=== PATIENT | female | born 1945 | race Caucasian/White ===

== ENCOUNTER 2022-11-24 11:00 | Emergency (ER) | payer MEDICARE, OTHER ==
[2022-11-24 11:58] LABS: BASOPHILS PERCENT AUTO 0.6 % (0.0-1.5); EOSINOPHILS ABSOLUTE AUTO 0.2 K/uL (0.0-0.7); EOSINOPHILS PERCENT AUTO 2.8 % (0.0-7.0); HEMATOCRIT 39.2 % (36.0-46.0); LYMPHOCYTES PERCENT AUTO 30.9 % (16.0-40.0); MEAN CORPUSCULAR HEMOGLOBIN 32.2 pg (27.0-32.0); MEAN CORPUSCULAR HGB CONC 33.2 g/dL (31.0-37.0); MONOCYTES ABSOLUTE AUTO 0.7 K/uL (0.0-0.8); MONOCYTES PERCENT AUTO 11.3 % (0.0-15.0); NEUTROPHILS ABSOLUTE AUTO 3.5 K/uL (1.4-5.7); NEUTROPHILS PERCENT AUTO 54.4 % (48.0-80.0); NRBC ABSOLUTE 0 K/uL; PLATELET COUNT,PLT 323 K/uL (150-400); RED BLOOD CELL COUNT 4.04 M/uL (4.30-5.90); WHITE BLOOD CELL COUNT,WBC 6.38 K/uL (4.0-11.0)
[2022-11-24 12:11] LABS: INR 1.01 (0.86-1.11)
[2022-11-24 12:29] LABS: A/G RATIO 0.8 (0.9-1.6); ALBUMIN 3.4 g/dL (3.4-5.0); BILIRUBIN TOTAL 0.4 mg/dL (0.2-1.0); CALCIUM 9.3 mg/dL (8.5-10.1); CARBON DIOXIDE,CO2 25.9 mmol/L (21.0-32.0); CREATININE 0.8 mg/dL (0.6-1.0); EST CRCL DRUG DOSING (CG) 51.31 mL/min; POTASSIUM,K 4.3 mmol/L (3.5-5.1); PROTEIN TOTAL,TP 7.5 g/dL (6.4-8.2)
[2022-11-24 12:34] LABS: LACTIC ACID 0.8 mmol/L (0.4-2.0)
[2022-11-24] MEDS ORDERED: Sodium Chloride 0.9% 500 ML IV SCH (13:45)
[2022-11-24] MEDS ORDERED: Iopamidol 755 Mg/ML 100 ML Bottle IVPUSH ONE (14:16)
[2022-11-24 15:59] VITALS: BP 140/74; PULSE 80
== END 2022-11-24 15:58 | disposition home or self-care (01) ==
LOC: MW.ED 11:00
DX: L03.116 Cellulitis of left lower limb (principal); M79.81 Nontraumatic hematoma of soft tissue; R91.8 Other nonspecific abnormal finding of lung field; I10 Essential (primary) hypertension; E78.00 Pure hypercholesterolemia, unspecified; Z79.899 Other long term (current) drug therapy
CPT/HCPCS: 36415; 71045; 71260; 80053; 83605; 84484; 85025; 85610; 93005; 93971; 99284; J7040; Q9967; 93010

== ENCOUNTER 2023-02-19 07:09 | Day surgery (SDC) | payer MEDICARE, OTHER ==
[~2023-02-19 07:09] MED LIST: Lactated Ringers 1,000 ML IV SCH; Sodium Chloride 0.9% 10 ML Syringe FLUSH PRN; Sodium Chloride 0.9% 2.5 ML Syringe FLUSH PRN; Sodium Chloride 0.9% 20 ML SDV IV PRN
[2023-02-19] MEDS ORDERED: Propofol 200 MG/20 ML SDV ONE (09:04)
[2023-02-19] MEDS ORDERED: Lidocaine 2% 5 ML SDV ONE (09:04)
[2023-02-19 10:17] VITALS: BP 130/78; PULSE 124
== END 2023-02-19 10:40 | disposition home or self-care (01) ==
LOC: MW.SDS 07:09
PROVIDERS: ATTEND Surgery
DX: Z12.11 Encounter for screening for malignant neoplasm of colon (principal); D12.2 Benign neoplasm of ascending colon; K62.89 Other specified diseases of anus and rectum; I10 Essential (primary) hypertension; E78.00 Pure hypercholesterolemia, unspecified; Z86.010 Personal history of colon polyps; Z79.899 Other long term (current) drug therapy; Z98.890 Other specified postprocedural states; Z87.891 Personal history of nicotine dependence
CPT/HCPCS: 45380; J2704; J7120; 00811; 99100; J3490

== ENCOUNTER 2023-02-20 06:08 | Day surgery (SDC) | payer MEDICARE, OTHER ==
[2023-02-20] MEDS ORDERED: Bupivacaine 0.5% 30 ML SDV ONE (07:24)
[2023-02-20] MEDS ORDERED: Heparin Sodium 100 Units/ML 3 ML Syringe ONE (07:24)
[2023-02-20] MEDS ORDERED: Lidocaine 1% 20 ML MDV ONE (07:24)
[2023-02-20] MEDS ORDERED: Propofol 200 MG/20 ML SDV ONE (07:36)
[2023-02-20] MEDS ORDERED: propofoL 50 ML ONE (07:36)
[2023-02-20] MEDS ORDERED: fentaNYL 100 MCG/2 ML SDV ONE (07:36)
[2023-02-20] MEDS ORDERED: HYDROmorphone 1 MG/ML Syringe IVPUSH PRN (07:46)
[2023-02-20] MEDS ORDERED: Morphine 2 MG/ML SYRINGE IVPUSH PRN (07:46)
[2023-02-20] MEDS ORDERED: droPERidol 5 MG/2 ML SDV IVPUSH PRN (07:46)
[2023-02-20] MEDS ORDERED: Naloxone 0.4 MG/ML SDV IVPUSH PRN (07:46)
[2023-02-20] MEDS ORDERED: Albuterol 0.083% 2.5 MG/3 ML Neb Soln NEB PRN (07:46)
[2023-02-20] MEDS ORDERED: Ondansetron 4 MG/2 ML SDV IVPUSH PRN (07:46)
[2023-02-20] MEDS ORDERED: Metoclopramide 10 MG/2 ML SDV IVPUSH PRN (07:46)
[2023-02-20] MEDS ORDERED: fentaNYL 50 MCG/ML SDV IVPUSH PRN (07:46)
[2023-02-20] MEDS ORDERED: Phenylephrine HCl 0.5 MG/5 ML AMP ONE (08:29)
[2023-02-20 10:08] VITALS: BP 135/67; PULSE 74
[2023-02-20] MEDS ORDERED: ceFAZolin 2 GM in Sodium Chloride 0.9% 50 ML IV ONE (15:23)
== END 2023-02-20 10:35 | disposition home or self-care (01) ==
LOC: MW.SDS 06:08
PROVIDERS: ATTEND Surgery
DX: C34.91 Malignant neoplasm of unspecified part of right bronchus or lung (principal); I35.1 Nonrheumatic aortic (valve) insufficiency; K63.5 Polyp of colon; E78.00 Pure hypercholesterolemia, unspecified; I10 Essential (primary) hypertension; Z87.891 Personal history of nicotine dependence; Z79.899 Other long term (current) drug therapy
CPT/HCPCS: 36561; 71045; 76000; C1788; J1642; J2704; J3010; J3490; J7120; 00532; 99100; J2371

== ENCOUNTER 2023-09-24 15:04 | Emergency (ER) | payer MEDICARE, OTHER ==
[2023-09-24 15:45] LABS: BASOPHILS ABSOLUTE AUTO 0.03 K/uL (0.00-0.20); BASOPHILS PERCENT AUTO 0.7 % (0.0-1.0); EOSINOPHILS ABSOLUTE AUTO 0.05 K/uL (0.00-0.45); EOSINOPHILS PERCENT AUTO 1.1 % (0.0-6.0); HEMATOCRIT 31.9 % (37.0-47.0); HEMOGLOBIN 10.8 g/dL (12.0-16.0); IMMATURE GRAN ABSOLUTE AUTO 0.01 K/uL (0.00-0.05); IMMATURE GRAN PERCENT AUTO 0.2 % (0.0-0.4); LYMPHOCYTES ABSOLUTE AUTO 1.05 K/uL (1.00-4.80); MEAN CORPUSCULAR HEMOGLOBIN 33.4 pg (28.0-32.0); MEAN CORPUSCULAR HGB CONC 33.9 g/dL (32.0-36.0); MEAN CORPUSCULAR VOLUME 98.8 fL (83.0-99.0); MEAN PLATELET VOLUME 8.4 fL (9.4-12.3); MONOCYTES ABSOLUTE AUTO 0.51 K/uL (0.00-0.80); MONOCYTES PERCENT AUTO 11.2 % (0.0-8.0); NEUTROPHILS ABSOLUTE AUTO 2.91 K/uL (1.80-7.70); NEUTROPHILS PERCENT AUTO 63.8 % (41.0-71.0); PLATELET COUNT,PLT 305 K/uL (150-400); RED BLOOD CELL COUNT 3.23 M/uL (4.10-5.30); WHITE BLOOD CELL COUNT,WBC 4.56 K/uL (3.9-11.3)
[2023-09-24 16:05] LABS: INR 1.02 (0.86-1.11); PTT,PARTIAL THROMBOPLSTIN TIME 26.2 SEC (23.9-30.7)
[2023-09-24 16:13] LABS: A/G RATIO 0.7 (0.9-1.6); ALBUMIN 2.8 g/dL (3.4-5.0); BILIRUBIN TOTAL 0.3 mg/dL (0.2-1.0); CALCIUM 9.3 mg/dL (8.5-10.1); CARBON DIOXIDE,CO2 26.8 mmol/L (21.0-32.0); EST CRCL DRUG DOSING (CG) 38.75 mL/min; POTASSIUM,K 3.9 mmol/L (3.5-5.1); PROTEIN TOTAL,TP 6.7 g/dL (6.4-8.2)
[2023-09-24] MEDS: Pantoprazole 80 MG in Sodium Chloride 0.9% 10 ML IVPUSH STA (17:07)
[2023-09-24] MEDS: Sodium Chloride 0.9% 2.5 ML Syringe FLUSH PRN (17:07)
[2023-09-24] MEDS: Sodium Chloride 0.9% 10 ML Syringe FLUSH PRN (17:07)
[2023-09-24] MEDS: Iopamidol 755 MG/ML 500 ML Multipack Bottle IVPUSH STA (18:33)
[2023-09-24] MEDS: Heparin Sodium 100 Units/ML 3 ML Syringe FLUSH STA (19:45)
[2023-09-24 19:55] VITALS: BP 131/54; PULSE 80
== END 2023-09-24 19:54 | disposition home or self-care (01) ==
LOC: MW.ED 15:04
DX: K51.30 Ulcerative (chronic) rectosigmoiditis without complications (principal); K92.1 Melena; I10 Essential (primary) hypertension; Z75.8 Other problems related to medical facilities and other health care; Z87.891 Personal history of nicotine dependence; Z79.899 Other long term (current) drug therapy; Z86.19 Personal history of other infectious and parasitic diseases
CPT/HCPCS: 36415; 74177; 80053; 83690; 84484; 85025; 85610; 85730; 86850; 86900; 86901; 93005; 96374; 99284; C9113; J1642; J3490; Q9967

== ENCOUNTER 2024-03-19 08:57 | Day surgery (SDC) | payer MEDICARE, OTHER ==
[~2024-03-19 08:57] MED LIST changes: +Albuterol 0.083% 2.5 MG/3 ML Neb Soln NEB PRN; +HYDROmorphone 1 MG/ML Syringe IVPUSH PRN; -Lactated Ringers 1,000 ML IV SCH; +Metoclopramide 10 MG/2 ML SDV IVPUSH PRN; +Morphine 2 MG/ML SYRINGE IVPUSH PRN; +Naloxone 0.4 MG/ML SDV IVPUSH PRN; +Ondansetron 4 MG/2 ML SDV IVPUSH PRN; +Phenylephrine HCl In 0.9% NaCl 1 MG/10 ML Syringe IVPUSH PRN; -Sodium Chloride 0.9% 10 ML Syringe FLUSH PRN; -Sodium Chloride 0.9% 2.5 ML Syringe FLUSH PRN; -Sodium Chloride 0.9% 20 ML SDV IV PRN; +droPERidol 5 MG/2 ML SDV IVPUSH PRN; +fentaNYL 50 MCG/ML SDV IVPUSH PRN
[2024-03-19] MEDS ORDERED: Bupivacaine 0.5% 30 ML SDV ONE (09:09)
[2024-03-19] MEDS ORDERED: Lidocaine 1% 20 ML MDV ONE (09:09)
[2024-03-19] MEDS ORDERED: Bupivacaine 0.25% 30 ML SDV ONE (09:10)
[2024-03-19] MEDS: Lactated Ringers 1,000 ML IV SCH (09:20)
[2024-03-19] MEDS ORDERED: Ketamine HCL/NACL, ISO-OSM 50 MG/5 ML Syringe ONE (09:27)
[2024-03-19] MEDS ORDERED: propofoL 50 ML ONE (09:27)
[2024-03-19] MEDS ORDERED: Lidocaine 1% with EPINEPHrine 1:100,000 10 ML MDV ONE (09:48)
[2024-03-19] MEDS ORDERED: ceFAZolin 1 GM Vial ONE (10:08)
[2024-03-19] MEDS ORDERED: Ondansetron 4 MG/2 ML SDV ONE (10:38)
[2024-03-19 11:13] VITALS: BP 128/58; PULSE 60
[2024-03-19] MEDS ORDERED: ceFAZolin 1 GM in Sodium Chloride 0.9% 50 ML IV ONE (15:28)
== END 2024-03-19 11:40 | disposition home or self-care (01) ==
LOC: MW.SDS 08:57
PROVIDERS: ATTEND Surgery
DX: C34.90 Malignant neoplasm of unspecified part of unspecified bronchus or lung (principal); I10 Essential (primary) hypertension; Z79.899 Other long term (current) drug therapy; Z87.891 Personal history of nicotine dependence
CPT/HCPCS: 36590; J0131; J0665; J0690; J2405; J2704; J7120; 00400; 88300; 99100; J3490